=== PATIENT | female | born 1980 | race Caucasian/White ===

== ENCOUNTER 2017-02-27 02:22 | Emergency (ER) | payer OTHER ==
[~2017-02-27] VITALS: Ht 175.3 cm; Wt 115.0 kg
[~2017-02-27 02:22] MED LIST: IBUP600 PO; PERI8.6T PO; PREN1TAB30 PO
[2017-02-27 02:25] VITALS: BP 176/80; PULSE 91; RESP 16; TEMP 98.1; O2SAT 100
[2017-02-27 02:53] VITALS: BP 179/115; PULSE 88; RESP 24; O2SAT 100
[2017-02-27] MEDS ORDERED: birth control (02:57)
[2017-02-27] MEDS ORDERED: SODIUM CHLORIDE 0.9% FLUSH 10 ML FLUSH IV FLUSH PRN (03:00)
[2017-02-27] MEDS ORDERED: MORPHINE SULFATE 4 MG/ML INJ IV PUSH ONE ×2 (03:00→04:15)
[2017-02-27] MEDS ORDERED: ONDANSETRON HCL 4 MG/2 ML VIAL IVP ONE (03:00)
[2017-02-27] MEDS ORDERED: PROM25TA10 PO (03:10)
[2017-02-27] MEDS ORDERED: PERC5TAB12 PO (03:10)
--- NOTE | 2017-02-27 03:10 | PD ---
HPI . Right upper quadrant pain Chief Complaint: Abdominal Pain Time Seen by Provider: 02:58 Travel History International Travel<30 days: No Contact w/Intl Traveler<30days: No Traveled to known affect area: No History of Present Illness HPI This patient presents with the chief complaint of right upper quadrant pain. Onset was 11 PM. She has had some mild nausea. Otherwise, no associated symptoms. She reports a known history of gallstones. She states that she has not had any trouble with it for a couple years. Pain is constant and rated 8/ 10. No modifying factors. PFSH Past Medical History Arthritis: Yes (Bilateral Knees) Cancer: No Cardiovascular Problems: No Diabetes: No Diminished Hearing: No Endocrine: No Genitourinary: No Hepatitis: No Hiatal Hernia: No Immune Disorder: No Musculoskeletal: Yes (shefali knees) Neurologic: No Psychiatric: No Reproductive: No Respiratory: No Thyroid Disease: No Tetanus Vaccination: < 5 Years Influenza Vaccination: Yes ?: Not : 3 Para: 1 Miscarriage: 2 Past Surgical History AICD: No Joint Replacement: No Pacemaker: No Social History Alcohol Use: No Tobacco Use: No Substance Use: No Allergies-Medications (Allergen,Severity, Reaction): Coded Allergies: codeine (Unverified Adverse Reaction, Intermediate, Nausea/Vomiting, ) Reported Meds & Prescriptions Reported Meds & Active Scripts Active Percocet (Oxycodone-Acetaminophen) 5-325 mg Tab 1 Tab PO Q4H PRN Phenergan (Promethazine HCl) 25 Mg Tablet 25 Mg PO Q6H PRN Reported [ control] Review of Systems Except as stated in HPI: all other systems reviewed are Neg General / Constitutional: No: Fever, Chills Gastrointestinal: Positive: Nausea, Abdominal Pain, No: Vomiting, Diarrhea Genitourinary: No: Urgency, Frequency, Dysuria Physical Exam Narrative GENERAL: She looks very uncomfortable. SKIN: warm/dry. HEAD: Normocephalic. Atraumatic. EYES: Pupils equal and round. No scleral icterus. No injection or drainage. ENT: No nasal bleeding or discharge. Mucous membranes pink and moist. NECK: Trachea midline. Full range of motion without pain.. CARDIOVASCULAR: Regular rate and rhythm. RESPIRATORY: No accessory muscle use. Clear to auscultation. Breath sounds equal bilaterally. GASTROINTESTINAL: Abdomen soft. Right upper quadrant tenderness. Bowel sounds present. Nondistended. MUSCULOSKELETAL: No obvious deformities. NEUROLOGICAL: Awake and alert. No obvious cranial nerve deficits. Motor grossly within normal limits. Normal speech. PSYCHIATRIC: Appropriate mood and affect; insight and judgment normal. Data Data Last Documented VS Vital Signs Date Time Temp Pulse Resp B/P (MAP) Pulse Ox O2 Delivery O2 Flow Rate FiO2 02/27/17 04:00 82 16 148/75 (99) 97 Room Air 02/27/17 02:25 98.1 Orders Orders Complete Blood Count With Diff (02/27/17 02:58) Comprehensive Metabolic Panel (02/27/17 02:58) Lipase (02/27/17 02:58) Iv Access Insert/Monitor (02/27/17 02:58) Morphine Inj (Morphine Inj) (02/27/17 03:00) Ondansetron Inj (Zofran Inj) (02/27/17 03:00) Sodium Chloride 0.9% Flush (Ns Flush) (02/27/17 03:00) Morphine Inj (Morphine Inj) (02/27/17 04:15) Labs Laboratory Tests Test 02/27/17 03:07 White Blood Count 9.0 TH/MM3 Red Blood Count 4.78 MIL/MM3 Hemoglobin 14.8 GM/DL Hematocrit 42.5 % Mean Corpuscular Volume 88.8 FL Mean Corpuscular Hemoglobin 31.0 PG Mean Corpuscular Hemoglobin Concent 34.9 % Red Cell Distribution Width 13.0 % Platelet Count 218 TH/MM3 Mean Platelet Volume 8.4 FL Neutrophils (%) (Auto) 51.2 % Lymphocytes (%) (Auto) 40.0 % Monocytes (%) (Auto) 7.0 % Eosinophils (%) (Auto) 1.2 % Basophils (%) (Auto) 0.6 % Neutrophils # (Auto) 4.6 TH/MM3 Lymphocytes # (Auto) 3.6 TH/MM3 Monocytes # (Auto) 0.6 TH/MM3 Eosinophils # (Auto) 0.1 TH/MM3 Basophils # (Auto) 0.1 TH/MM3 CBC Comment DIFF FINAL Differential Comment Blood Urea Nitrogen 14 MG/DL Creatinine 1.04 MG/DL Random Glucose 134 MG/DL Total Protein 8.0 GM/DL Albumin 3.4 GM/DL Calcium Level 8.6 MG/DL Alkaline Phosphatase 81 U/L Aspartate Amino Transf (AST/SGOT) 12 U/L Alanine Aminotransferase (ALT/SGPT) 18 U/L Total Bilirubin 0.2 MG/DL Sodium Level 139 MEQ/L Potassium Level 3.6 MEQ/L Chloride Level 105 MEQ/L Carbon Dioxide Level 20.4 MEQ/L Anion Gap 14 MEQ/L Estimat Glomerular Filtration Rate 59 ML/MIN Lipase 295 U/L MDM Medical Decision Making Medical Screen Exam Complete: Yes Emergency Medical Condition: Yes Differential Diagnosis Differential diagnosis of abdominal pain includes but is not limited to gastritis, pancreatitis, hepatitis, gastroenteritis, gallbladder disease, constipation, urinary retention, UTI, peptic ulcer disease, diverticulitis or appendicitis Narrative Course This patient presents with acute right upper quadrant abdominal pain. She reports a known history of gallstones. Her symptoms are pretty classic for a gallbladder attack. I will check some labs to rule out acute cholecystitis. Her pain will be treated with morphine. Patient reports that her pain is gone from a 9 to a 3. I will give her 2 more milligrams of morphine. CBC & BMP Diagram 02/27/17 03:07 Total Protein 8.0, Albumin 3.4, Calcium Level 8.6, Alkaline Phosphatase 81, Aspartate Amino Transf (AST/SGOT) 12 L, Alanine Aminotransferase (ALT/SGPT) 18, Total Bilirubin 0.2 She has no evidence of acute cholecystitis. She'll be discharged home with referral to Dr. Phillips. I have written her prescriptions for Percocet and Phenergan. Diagnosis Primary Impression: Right upper quadrant pain Referrals: Helder Phillips MD 2 days Patient Instructions: Gallstones (DC), General Instructions Med/Other Pt SpecificInfo: Prescription(s) given Scripts Oxycodone-Acetaminophen (Percocet) 5-325 mg Tab 1 TAB PO Q4H Y for PAIN, #12 TAB 0 Refills Prov: Gisella Hodgson MD 02/27/17 Promethazine (Phenergan) 25 Mg Tablet 25 MG PO Q6H Y for NAUSEA OR VOMITING, #10 TAB 0 Refills Prov: Gisella Hodgson MD 02/27/17 Disposition: 01 DISCHARGE HOME Condition: Stable Gisella Hodgson MD Feb 27, 2017 03:10
[2017-02-27 03:20] LABS: AUTOMATED NEUTROPHIL # 4.6 TH/MM3 (1.8-7.7); BASOPHIL # 0.1 TH/MM3 (0-0.2); BASOPHIL % 0.6 % (0.0-2.0); EOSINOPHIL # 0.1 TH/MM3 (0-0.4); EOSINOPHIL % 1.2 % (0.0-4.0); HEMATOCRIT 42.5 % (35.0-46.0); HEMO FLAGS DIFF FINAL; LYMPHOCYTE # 3.6 TH/MM3 (1.0-4.8); MEAN CELL VOLUME 88.8 FL (80.0-100.0); MEAN CORPUSCULAR HGB CONC 34.9 % (32.0-36.0); NEUT % 51.2 % (16.0-70.0); PLATELET COUNT 218 TH/MM3 (150-450); RED BLOOD COUNT 4.78 MIL/MM3 (4.00-5.30)
[2017-02-27 03:45] LABS: ALKALINE PHOSPHATASE 81 U/L (45-117); TOTAL BILIRUBIN ADULT 0.2 MG/DL (0.2-1.0)
[2017-02-27 04:00] VITALS: BP 148/75; PULSE 82; RESP 16; O2SAT 97
[2017-02-27 04:09] LABS: ALT (GPT) 18 U/L (10-53); ANION GAP 14 MEQ/L (5-15); AST (GOT) 12 U/L (15-37); BICARBONATE 20.4 MEQ/L (21.0-32.0); BLOOD UREA NITROGEN 14 MG/DL (7-18); CHLORIDE 105 MEQ/L (98-107); GLOMERULAR FILTRATION RATE 59 ML/MIN (>89); POTASSIUM 3.6 MEQ/L (3.5-5.1); SODIUM (NA) 139 MEQ/L (136-145)
== END 2017-02-27 04:42 | disposition home or self-care (01) ==
LOC: NEPE 02:22
DX: R10.11 Right upper quadrant pain (principal); R11.0 Nausea
CPT/HCPCS: 80053; 83690; 85025; 96374; 96375; 96376; 99284; J2270; J2405